=== PATIENT | female | born 1975 | race Caucasian/White ===

== ENCOUNTER 2016-08-20 17:26 | Emergency (ER) | payer OTHER ==
[~2016-08-20 17:26] MED LIST: COZAAR100 MG PO; ELIQUIS 5 MG TAB5 MG PO; GLUCOPHAGE500 MG PO; INDERAL TAB 1010 MG PO; TAPAZOLE5 MG PO; TOPAMAX25 MG PO
[2016-08-20 21:38] LABS: HEMOGLOBIN 13.8 gm/dl (12.3-15.3); RED BLOOD COUNT 5.05 M/UL (4.00-5.10); WHITE BLOOD COUNT 9.6 K/UL (4.5-11.0)
[2016-08-20 21:55] LABS: BUN/CREATININE RATIO 13 (0-10)
== END 2016-08-21 00:30 | disposition home or self-care (01) ==
LOC: ER1 17:26
PROVIDERS: Specialist/Technologist Athletic Trainer
DX: R00.2 Palpitations (principal); R19.7 Diarrhea, unspecified; R51 Headache; E11.9 Type 2 diabetes mellitus without complications; I10 Essential (primary) hypertension; E03.9 Hypothyroidism, unspecified; Z88.0 Allergy status to penicillin; Z88.5 Allergy status to narcotic agent; Z79.84 Long term (current) use of oral hypoglycemic drugs; Z79.899 Other long term (current) drug therapy
CPT/HCPCS: 36415; 70450; 80053; 81001; 83690; 84439; 84443; 85025; 96374; 99284; J2405; Q0163

== ENCOUNTER 2016-09-18 13:35 | Emergency (ER) | payer OTHER ==
[2016-09-18 14:56] LABS: HEMOGLOBIN 12.8 gm/dl (12.3-15.3); RED BLOOD COUNT 4.65 M/UL (4.00-5.10); WHITE BLOOD COUNT 8.2 K/UL (4.5-11.0)
[2016-09-18 15:13] LABS: BUN/CREATININE RATIO 13 (0-10)
== END 2016-09-18 19:45 | disposition home or self-care (01) ==
LOC: ER1 13:35
PROVIDERS: Emergency Medicine
DX: K57.32 Diverticulitis of large intestine without perforation or abscess without bleeding (principal); Z90.49 Acquired absence of other specified parts of digestive tract; Z88.0 Allergy status to penicillin; Z88.5 Allergy status to narcotic agent; Z79.84 Long term (current) use of oral hypoglycemic drugs; Z79.899 Other long term (current) drug therapy
CPT/HCPCS: 36415; 80053; 81001; 83690; 85025; 87086; 96374; 96375; 99284; C9113; J2405

== ENCOUNTER 2016-09-26 20:51 | Emergency (ER) | payer OTHER ==
[2016-09-27 03:12] LABS: HEMOGLOBIN 14.1 gm/dl (12.3-15.3); RED BLOOD COUNT 5.11 M/UL (4.00-5.10); WHITE BLOOD COUNT 16.2 K/UL (4.5-11.0)
== END 2016-09-27 07:48 | disposition home or self-care (01) ==
LOC: ER1 20:51
PROVIDERS: Student in an Organized Health Care Education/Training Program
DX: R11.2 Nausea with vomiting, unspecified (principal); R19.7 Diarrhea, unspecified; N17.9 Acute kidney failure, unspecified; D72.829 Elevated white blood cell count, unspecified; N12 Tubulo-interstitial nephritis, not specified as acute or chronic; E03.9 Hypothyroidism, unspecified; I10 Essential (primary) hypertension; Z90.49 Acquired absence of other specified parts of digestive tract; Z88.0 Allergy status to penicillin; Z88.5 Allergy status to narcotic agent
CPT/HCPCS: 36415; 80053; 81001; 83690; 84703; 85025; 87086; 96361; 96374; 96375; 96376; 99284; J0696; J2405; J7050; Q9962

== ENCOUNTER → 2016-12-03 | Outpatient (CLI) | payer OTHER | LOC: US 14:00 | DX: E05.90 Thyrotoxicosis, unspecified without thyrotoxic crisis or storm (principal); E07.9 Disorder of thyroid, unspecified | CPT/HCPCS: 76536 ==

== ENCOUNTER 2017-03-03 00:43 | Emergency (ER) | payer OTHER | END 2017-03-03 01:48 | disposition left against medical advice (07) | LOC: ER1 00:43 | DX: Z53.21 Procedure and treatment not carried out due to patient leaving prior to being seen by health care provider (principal) ==

== ENCOUNTER 2017-03-03 15:30 | Emergency (ER) | payer OTHER ==
[2017-03-03 16:45] LABS: HEMOGLOBIN 12.5 gm/dl (12.3-15.3); RED BLOOD COUNT 4.47 M/UL (4.00-5.10); WHITE BLOOD COUNT 8.1 K/UL (4.5-11.0)
[2017-03-03 17:10] LABS: BUN/CREATININE RATIO 14 (0-10)
== END 2017-03-03 20:03 | disposition home or self-care (01) ==
LOC: ER1 15:30
PROVIDERS: Physician Assistant
DX: N39.0 Urinary tract infection, site not specified (principal); E11.9 Type 2 diabetes mellitus without complications; I10 Essential (primary) hypertension; Z90.49 Acquired absence of other specified parts of digestive tract; Z79.84 Long term (current) use of oral hypoglycemic drugs; Z79.899 Other long term (current) drug therapy
CPT/HCPCS: 36415; 80053; 81001; 82150; 83690; 84484; 84703; 85025; 93005; 99284; J7050; Q9962

== ENCOUNTER 2020-11-03 15:10 | Emergency (ER) | payer OTHER ==
[~2020-11-03 15:10] MED LIST changes: +BENTYL 20MG TAB20 MG PO; +IPRAT-ALBUT 0.5-3 ML INH; +MACROBID 100 M100 MG PO; +MEDROL4 MG PO; +MUCINEX DM ER1 EAC1 PO; +PROTONIX40 MG PO; +PYRIDIUM100 MG PO; +ZITHROMAX250 MG PO; +ZOFRAN ODT 4 MG4 MG PO; +ZOFRAN4 MG PO
[2020-11-03 16:24] LABS: HEMOGLOBIN 12.2 gm/dl (12.3-15.3); RED BLOOD COUNT 4.76 M/UL (4.00-5.10); WHITE BLOOD COUNT 8.5 K/UL (4.5-11.0)
[2020-11-03 16:48] LABS: BUN/CREATININE RATIO 10 (0-10)
[2020-11-03] MEDS ORDERED: ZOFRAN4 MG PO (17:03)
[2020-11-03] MEDS ORDERED: PROTONIX40 MG PO (17:03)
== END 2020-11-03 17:13 | disposition home or self-care (01) ==
LOC: ER1 15:10
PROVIDERS: Physician Assistant
DX: R10.13 Epigastric pain (principal); K21.9 Gastro-esophageal reflux disease without esophagitis; I10 Essential (primary) hypertension; Z90.49 Acquired absence of other specified parts of digestive tract; Z88.5 Allergy status to narcotic agent; Z88.0 Allergy status to penicillin; Z79.899 Other long term (current) drug therapy
CPT/HCPCS: 80053; 81001; 82150; 83690; 85025; 99284